=== PATIENT | female | born 1990 | race Two or more races ===

== ENCOUNTER 2018-12-29 13:34 | Emergency (ER) | payer OTHER ==
--- NOTE | 2018-12-29 13:41 | PDOC ---
Rapid Medical Evaluation Time Seen by Provider: 12/29/18 13:37 Medical Evaluation: 12/29/18 13:37 This patient had a brief in-person evaluation by me. cc: sent by food management aide for abnormal sono states no vaginal bleeding, + intermittent cramping PE:NAD even and unlabored breathing non tender abdomen Orders: urine pt, bhcg, cbc, cmp This patient will proceed to Ed for further evaluation Discharge Disposition - Diagnosis Abdominal cramping - Referrals - Patient Instructions - Post Discharge Activity
[2018-12-29 14:02] VITALS: BP 128/83; PULSE 90; TEMP 97.8; BMI 42.9
--- NOTE | 2018-12-29 15:23 | PDOC ---
History of Present Illness - General Chief Complaint: Pain Stated Complaint: ABNORMAL SONOGRAM Time Seen by Provider: 12/29/18 13:37 History Source: Patient Exam Limitations: No Limitations - History of Present Illness Travel History: No Initial Comments: 12/29/18 14:16 28-year-old Female presents to ED with complaints of vaginal spotting last week and mild abdominal cramping. Patient states went to her [employer] doctor Jhonathan last week and had an ultrasound done but did not know the results and was called this morning to go to the nearest ER for "abnormal ultrasound" patient currently denies vaginal spotting, abdominal pain, back pain, nausea, fever, chills or weakness. Patient states had a spontaneous miscarriage at approximately 9-10 weeks gestation. Timing/Duration: reports: gone now Aggravating Factors: improves with: None Alleviating Factors: improves with: None Past History - Travel Traveled outside of the country in the last 30 days: No Close contact w/someone who was outside of country & ill: No - Past Medical History Allergies/Adverse Reactions: Allergies Allergy/AdvReac Type Severity Reaction Status Date / Time prednisone Allergy Verified 12/29/18 13:42 COPD: No GI Disorders: Yes (GASTRITIS) Other medical history: ARTHRITIS - Suicide/Smoking/Psychosocial Hx Smoking History: Never smoked Information on smoking cessation initiated: No Hx Alcohol Use: No Drug/Substance Use Hx: No Patient Lives Alone: No Lives with/in: spouse/SO Review of Systems - Review of Systems Able to Perform ROS?: Yes Constitutional: No: Symptoms Reported HEENTM: No: Symptoms Reported Respiratory: No: Symptoms reported Cardiac (ROS): No: Symptoms Reported ABD/GI: Yes: Abdominal cramping : Yes: Discharge Musculoskeletal: No: Symptoms Reported Integumentary: No: Symptoms Reported Neurological: No: Symptoms reported Hematologic/Lymphatic: No: Symptoms Reported *Physical Exam - Vital Signs Last Vital Signs Temp Pulse Resp BP Pulse Ox 97.8 F 90 19 128/83 100 12/29/18 13:38 12/29/18 13:38 12/29/18 13:38 12/29/18 13:38 12/29/18 13:38 - Physical Exam General Appearance: Yes: Nourished, Appropriately Dressed. No: Apparent Distress HEENT: negative: Pale Conjunctivae Neck: positive: Normal Thyroid Respiratory/Chest: positive: Lungs Clear, Normal Breath Sounds. negative: Respiratory Distress, Accessory Muscle Use Cardiovascular: positive: Regular Rhythm, Regular Rate. negative: Murmur Female Pelvic Exam: negative: discharge, vaginal bleeding Gastrointestinal/Abdominal: positive: Soft. negative: Tenderness Extremity: positive: Normal Inspection Integumentary: positive: Normal Color, Warm, Moist Neurologic: positive: Motor Strength 5/5 (ambulatory) ED Treatment Course - LABORATORY CBC & Chemistry Diagram: 12/29/18 15:25 12/29/18 15:25 - RADIOLOGY Radiology Studies Ordered: Category Date Time Status <14WKS US [US] Stat Ultrasound 12/29/18 14:06 Ordered Medical Decision Making - Medical Decision Making 12/29/18 17:15 Chief complaint: Irregular menses last week concerning for versus miscarriage. Patient here for medical evaluation. Patient currently asymptomatic. Exam: Vital stable. No vaginal bleeding currently.no abd tenderness Plan: urine, labs, and u/s Ultrasound shows normal pelvic sonogram with no sonographic evidence of a viable intrauterine gestation. Clinical laboratory correlation and follow-up sonographic is recommended. 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 12/29/18 17:15 12/29/18 17:18 Laboratory Tests 12/29/18 12/29/18 12/29/18 15:09 15:25 15:25 WBC 10.4 H Hgb 13.2 Hct 38.0 Neutrophils % 67.6 Sodium 139 Potassium 4.0 Chloride 104 Carbon Dioxide 28 Anion Gap 7 L BUN 17.7 Creatinine 0.9 Est GFR (CKD-EPI)AfAm 99.44 Est GFR (CKD-EPI)NonAf 85.80 Random Glucose 118 H Calcium 9.0 Total Bilirubin 0.3 AST 19 ALT 35 Alkaline Phosphatase 98 Total Protein 7.2 Albumin 3.4 Beta HCG, Quant < 1.0 Urine Color Yellow Urine Appearance Clear Urine Ketones Negative Urine Nitrite Negative Urine Bilirubin Negative Ur Leukocyte Esterase Negative *DC/Admit/Observation/Transfer Diagnosis at time of Disposition: Abdominal cramping - Discharge Dispostion Disposition: HOME Condition at time of disposition: Good - Referrals Referrals: ON STAFF,NOT [Primary Care Provider] - - Patient Instructions Printed Discharge Instructions: DI for Vaginal Bleeding Additional Instructions: Please follow up with the [facility] and otherwise understand the you may begin trying to have a baby as soon as possible. - Post Discharge Activity
[2018-12-29 15:33] LABS: BASO % 0.7 % (0-2.0); EOS % 1.7 % (0-4.5); HEMOGLOBIN 13.2 GM/dL (10.7-15.3); LYMPH % 25.7 % (8-40); MCH 30.5 pg (25.7-33.7); MCHC 34.9 g/dl (32.0-36.0); MEAN CELL VOLUME 87.4 fl (80-96); MEAN PLT VOLUME 8.8 fl (7.5-11.1); MONO % 4.3 % (3.8-10.2); NEUT % 67.6 % (42.8-82.8); PLATELET COUNT 310 K/MM3 (134-434); RBC 4.35 M/mm3 (3.60-5.2); RDW 13.9 % (11.6-15.6); WHITE BLOOD COUNT 10.4 K/mm3 (4.0-10.0)
[2018-12-29 15:53] LABS: URINE APPEARANCE CLEAR; URINE BILIRUBIN NEGATIVE (NEGATIVE); URINE COLOR YELLOW; URINE GLUCOSE (UA) NEGATIVE (NEGATIVE); URINE KETONE NEGATIVE (NEGATIVE); URINE LEUK ESTERASE NEGATIVE (NEGATIVE); URINE NITRITE NEGATIVE (NEGATIVE); URINE PROTEIN NEGATIVE (NEGATIVE); URINE UROBILINOGEN 0.2 mg/dL (0.2-1.0)
[2018-12-29 16:04] LABS: ALBUMIN 3.4 g/dl (3.4-5.0); ALK PHOS 98 U/L (45-117); ANION GAP 7 MMOL/L (8-16); BILIRUBIN,TOTAL 0.3 mg/dL (0.2-1); BLOOD UREA NITROGEN 17.7 mg/dL (7-18); CHLORIDE 104 mmol/L (98-107); CO2 28 mmol/L (21-32); CREATININE 0.9 mg/dL (0.55-1.3); GLUCOSE,RANDOM 118 mg/dL (74-106); SGOT/AST 19 U/L (15-37); SGPT/ALT 35 U/L (13-61); SODIUM 139 mmol/L (136-145); TOT PROT 7.2 g/dl (6.4-8.2)
== END 2018-12-29 17:29 | disposition home or self-care (01) ==
LOC: JER 13:34
DX: R10.9 Unspecified abdominal pain (principal)
CPT/HCPCS: 36415; 76801-TC; 80053; 81003; 84702; 85025; 86850; 86900; 86901; 87086; 99281-25

== ENCOUNTER 2024-04-15 21:30 | Emergency (ER) | payer SELFPAY | END 2024-04-15 21:36 | disposition left against medical advice (07) | LOC: FER 21:30 | DX: Z53.21 Procedure and treatment not carried out due to patient leaving prior to being seen by health care provider (principal) | CPT/HCPCS: 99281-25 ==

== ENCOUNTER 2024-05-25 05:25 | Inpatient (IN) | payer OTHER ==
[2024-05-25 05:38] VITALS: RESP 16
[2024-05-25 07:32] LABS: HEMATOCRIT 32.8 % (32.4-45.2); HEMOGLOBIN 10.6 G/dL (10.7-15.3); MCH 25.6 pg (25.7-33.7); MCHC 32.2 g/dl (32.0-36.0); MEAN CELL VOLUME 79.3 fl (80-96); MEAN PLT VOLUME 8.6 fl (7.5-11.1); PLATELET COUNT 422.1 10^3/uL (134-434); RBC 4.13 10^6/uL (3.60-5.2); RDW 17.6 % (11.6-15.6); WHITE BLOOD COUNT 11.8 10^3/uL (4.0-10.8)
[2024-05-25 07:45] LABS: PROTHROMBIN TIME (PATIENT) 11.4 SEC (9.7-13.0)
[2024-05-25 08:38] LABS: ALBUMIN 4.1 g/dl (3.4-5.0); ALK PHOS 70 U/L (45-117); ANION GAP 5 mmol/L (4-13); CALCIUM 9.3 mg/dl (8.5-10.1); CHLORIDE 103 mmol/L (98-107); CO2 32 mmol/L (21-32); CREATININE 0.9 mg/dl (0.6-1.3); GLUCOSE,RANDOM 86 mg/dl (74-106); POTASSIUM 3.9 mmol/L (3.5-5.1); SGOT/AST 15 U/L (15-37); SGPT/ALT 20 U/L (7-52); SODIUM 140 mmol/L (136-145); TOT PROT 6.9 g/dl (6.4-8.2)
[2024-05-25 10:05] LABS: BILIRUBIN,TOTAL 0.7 mg/dL (0.2-1)
[2024-05-25 11:16] VITALS: PULSE 86; TEMP 98; BMI 43.9
[2024-05-25] MEDS ORDERED: MUPIROCIN 2% TOPICAL OINTMENT FOR DECOLONIZATION NS SCH (13:00)
[2024-05-25 15:24] VITALS: BP 120/72
[2024-05-25] MEDS ORDERED: CHLORHEXIDINE GLUCONATE 4% CLEANSER FOR DECOLONIZATION TP SCH (22:00)
== END 2024-05-25 15:00 | disposition left against medical advice (07) | DRG 58 ==
LOC: FER 05:25 → JICU 07:02
PROVIDERS: ADMIT Internal Medicine Pulmonary Disease; ATTEND Internal Medicine Pulmonary Disease
DX: Q28.3 Other malformations of cerebral vessels (principal); G93.6 Cerebral edema; F17.210 Nicotine dependence, cigarettes, uncomplicated; F90.9 Attention-deficit hyperactivity disorder, unspecified type; M54.2 Cervicalgia; M54.50 Low back pain, unspecified; E66.9 Obesity, unspecified; Z68.41 Body mass index [BMI] 40.0-44.9, adult
CPT/HCPCS: 36415; 70450-TC; 72125-TC; 72131-TC; 80053; 81025; 85025; 85610; 86850; 86900; 86901; 93005; 93010; 99285-25